=== PATIENT | female | born 1975 | race Caucasian/White ===

== ENCOUNTER 2024-08-19 02:23 | Emergency (ER) | payer OTHER, SELFPAY ==
[2024-08-19 02:23] VITALS: BP 146/88; PULSE 98; RESP 16; TEMP 36.5; O2SAT 99; BMI 28.5
--- NOTE | 2024-08-19 02:42 | CT_ITS ---
PROCEDURE: ABDOMEN/PELVIS W IV CONT ONLY REASON FOR EXAM: ABD PAIN TECHNIQUE: Abdomen and pelvis CT with intravenous contrast. IV CONTRAST: 100 cc of Isovue 370 COMPARISON: None. FINDINGS: There dependent changes at the lung bases. There is no pleural or pericardial effusion. There is no free air within the abdomen and pelvis. The liver, gallbladder, spleen, adrenals, pancreas are within normal limits. The bilateral kidneys are without evidence of hydronephrosis or obstructive uropathy. There are small hypodense structures within the bilateral kidneys, some are too small to characterize but statistically represent cysts urinary bladder is within normal limits. The uterus is heterogeneous in appearance. A large posterior uterine wall mass is present measuring up to 8.5 x 7.8 by 7.7 cm. This most likely represents fibroid versus adenomyoma. Moderate colonic stool is present. There is no evidence of bowel obstruction. The appendix is difficult to identified. No definite inflammatory processes however seen within the right lower quadrant. There is no bowel obstruction. No acute osseous abnormality seen. CT/Abdomen/Pelvis W IV Cont ONLY IMPRESSION: Heterogeneous appearance of the uterus. 8.5 cm mass seen within the posterior uterine wall is likely to represent a fibroid versus adenomyoma. No definite acute inflammatory process is seen within the abdomen or pelvis. N o evidence of bowel obstruction. Other findings as above. One or more dose reduction techniques were used (e.g., Automated exposure contr ol, adjustment of the mA and/or kV according to patient size, use of iterative reconstruction technique). Reading Location: [id number]
--- NOTE | 2024-08-19 02:45 | EDS_ITS ---
HPI History of Present Illness Chief Complaint: Abd Pain Informant: patient and family Narrative Narrative: Patient is a 49-year-old female with no reported significant past medical history. She states she went to bed normally and then awoke a few hours prior to arrival with sharp lower abdominal discomfort. She states has been no recent trauma or excessive physical activity. She denies any concern for and states that her menstrual cycle ended roughly 1 week ago. She states that there is no associated vomiting diarrhea dysuria or constipation. She does report mild nausea secondary to the pain. She states she typically can take 1 Tylenol and her symptoms resolved but that this evening there has been no improvement and secondary to this comes in for evaluation. PFSH PFS Medical History no medical history no medical history Home Medications ?Medication ?Instructions ?Recorded ?Last Taken ?Type NK 08/19/24 Unknown History Allergy/AdvReac Type Severity Reaction Status Date / Time Penicillins (PCN) Allergy RASH Verified 08/19/24 02:23 Surgical History no surgical history Social History Smoking Status: Never smoker [facility] ED Constitutional Constitutional ED: Denies chills or fever(s) ENT ENT ED: Denies sore throat Cardiovascular Cardiovascular: Denies chest pain Respiratory/Chest Respiratory/Chest: Denies cough or dyspnea Gastrointestinal Gastrointestinal: Reports abdominal pain and nausea; Denies constipation, diarrhea or vomiting Genitourinary Genitourinary ED: Denies dysuria or hematuria Musculoskeletal Musculoskeletal: Denies back pain Integumentary Denies rash Neurologic Neurologic: Denies headache(s) Hematologic/Lymphatic Hematologic/Lymphatic: Denies easy bleeding or easy bruising EXAM Physical Exam Const Vital Signs: 08/19/24 02:23 08/19/24 04:23 08/19/24 06:00 Temperature 97.7 F L Temperature Source Oral Pulse Rate 98 81 90 Respiratory Rate 16 16 16 Blood Pressure 146/88 H 125/76 H 105/52 L Blood Pressure Mean 107 92 69 Pulse Ox 99 98 99 Oxygen Delivery Method Room Air Room Air 08/19/24 07:21 Temperature Temperature Source Pulse Rate 78 Respiratory Rate 16 Blood Pressure 121/72 H Blood Pressure Mean 88 Pulse Ox 98 Oxygen Delivery Method Room Air Positive well nourished and well developed General Appearance ED: well developed; Negative for pallor HEENT Reports moist mucous membranes HEENT Narrative: No tongue or lip swelling no oral lesions no airway edema or compromise No secondary findings in the posterior pharynx to suggest infection Eyes PERRL and EOMs intact bilaterally General Eye ED: Negative for scleral icterus Neck supple Neck Narrative: No nuchal rigidity or meningeal signs Resp normal respiratory effort and clear to auscultation bilaterally Cardio regular rate and regular rhythm Rate: other Other Details: Heart is regular rate and rhythm without murmurs rubs or gallops Radial and carotid pulses are equal and symmetric GI non-distended and no masses GI Narrative: Abdomen is soft and nondistended with normal active bowel sounds. There is pain on palpation in the suprapubic and right lower quadrant without voluntary gua rding or rigidity No pulsatile mass or fluid wave Negative Valdez sign Auscultation: normoactive bowel sounds Palpation: soft Back/Spine no CVA tenderness Extremity normal to inspection Neuro oriented x3, CN's II-XII intact bilaterally and no sensory deficits noted Sensorium / Orientation: alert Motor Exam: strength 5/5 throughout Psych mental status grossly normal Skin no rashes or lesions noted and no wounds General Skin Exam: Negative for jaundice or pallor MDM MDM MDM Narrative Medical decision making narrative: Patient arrived to ER hypertensive otherwise with stable vitals. She reported pain in the lower mid abdomen without trauma or excessive activity. She denied any dysuria vaginal discharge or concern for . With pain in the suprapubic to right lower quadrant region there is concern for UTI versus acute appendicitis versus kidney stone versus ovarian cyst versus complication. Basic blood work was obtained and reveals no leukocytosis or left shift. No signs of acute kidney injury or lactic acidosis. Urine sample showed no sign of infection going against UTI or blood going against kidney stone and test is negative going against complication. CT scan showed a large uterine fibroid but otherwise no clinically significant finding. This does correlate with her location of pain. In order to ensure that there is no secondary ovarian pathology or signs of decreased blood flow causing her increased abdominal discomfort I did elect to perform a ultrasound of the uterus and ovaries while in the ER. The ultrasound showed no signs of obvious infection or lack of blood flow and this correlates with her spontaneous improvement of pain as well as stable vitals and laboratory values. Therefore this time there is no need for further evaluation in the ER the patient can follow-up with [facility] to discuss further treatment options and or need for hysterectomy to prevent any recurrence of her pain History & Record Review Discussion w/independent historian: Patient and Family Lab Data Attestation: I reviewed the patient's lab results. Labs: Laboratory Results - last 24 hr 08/19/24 08/19/24 02:52 04:10 WBC 5.8 RBC 4.35 Hgb 13.0 Hct 38.0 MCV 87.4 MCH 29.9 MCHC 34.2 RDW Std Deviation 38.9 RDW Coeff of Nilo 12.2 Plt Count 221 MPV 8.7 Immature Gran % (Auto) 0.200 Neut % (Auto) 64.8 Lymph % (Auto) 23.6 [place] % (Auto) 10.0 Eos % (Auto) 1.2 Baso % (Auto) 0.2 Absolute Neuts (auto) 3.8 Absolute Lymphs (auto) 1.37 Nucleated RBC % 0 Sodium 138 Potassium 3.6 Chloride 103 Carbon Dioxide 24.5 Anion Gap 10 BUN 18 Creatinine 0.84 Estim Creat Clear Calc 76.36 Est GFR (MDRD) Non-Af 87 BUN/Creatinine Ratio 21.3 H Glucose 101 H Lactic Acid < 1.0 Calcium 9.0 Total Bilirubin 0.19 Direct Bilirubin 0.12 AST 29 ALT 22 Alkaline Phosphatase 66 Total Protein 6.6 Albumin 4.0 Globulin 2.7 Lipase 40 Serum , Qual NEGATIVE Urine Color Yellow Urine Clarity Clear Urine pH 7.0 Ur Specific [place] 1.010 Urine Protein Negative Urine Glucose (UA) Normal Urine Ketones Negative Urine Occult Blood Negative Urine Nitrite Negative Urine Bilirubin Negative Urine Urobilinogen Normal Ur Leukocyte Esterase Negative Urine RBC 0 SEEN Urine WBC 0 SEEN Ur Squamous Epith Cells 0 SEEN Urine Bacteria 0 SEEN Urine Mucus 0 SEEN Radiography Diagnostic Testing: Clinical Impression(s) from Imaging Studies Abdomen/Pelvis CT 08/19/24 02:42 IMPRESSION: Heterogeneous appearance of the uterus. 8.5 cm mass seen within the posterior uterine wall is likely to represent a fibroid versus adenomyoma. No definite acute inflammatory process is seen within the abdomen or pelvis. No evidence of bowel obstruction. Other findings as above. One or more dose reduction techniques were used (e.g., Automated exposure control, adjustment of the mA and/or kV according to patient size, use of iterative reconstruction technique). Reading Location: [id number] Pelvis Ultrasound 08/19/24 05:17 IMPRESSION: Enlarged fibroid uterus. 8 cm x 7.6 cm x 8.2 cm posterior fundal fibroid. Reading Location: [place] [id number] Discharge Plan Triage Chief Complaint: Abd Pain ED Provider: Giovanni Johnson Dx/Rx/DC Orders Clinical Impression: Uterine fibroid, Pelvic pain Instructions: Abdominal Pain, ED Uterine Fibroids Prescriptions: No Action NK Primary Care Provider: Care Physician,No Primary Referrals: Tri Medina MD [Med Staff - Active Staff] - (Pelvic pain with uterine fibroid) NOT,DEFINED [Non-Staff] - Activity Restrictions/Additional Instructions: Please follow-up with [facility] to discuss further treatment options and/or need for surgery based on your uterine fibroid and pain. If you develop abdominal pain that does not respond to [id number] medication significant bleeding or a fever or you have any further concerns please return to the ER for repeat evaluation Print Language: Thai Disposition Disposition: Home, Self Care
[2024-08-19] MEDS: 0.9% Normal Saline (1000mL) 1,000 ML 999 ML IV (02:53)
[2024-08-19 03:06] LABS: Absolute Lymphocyte Count 1.37 X10^3/uL (0.83-4.51); Absolute Neutrophil Count 3.8 X10^3/uL (2.0-7.7); Basophil# 0.01 X10^3/uL; Basophil% 0.2 % (0-1); Eosinophil# 0.07 X10^3/uL; Eosinophils% 1.2 % (0-5); Lymphocyte # 1.37 X10^3/ul (0.83-4.51); Lymphocyte % 23.6 % (19-41); Mean Corp Hgb Conc 34.2 g/dL (32-36); Mean Corpuscular Hgb 29.9 pg (27.0-32.0); Mean Corpuscular Volume 87.4 fL (81-99); Mean Platelet Vol. 8.7 fl (6.2-12.0); Monocyte# 0.58 X10^3/uL; NRBC Flagged by Analyzer 0 % (0-5); Neutrophil # 3.76 X10^3/uL (2.7-7.7); Neutrophil % 64.8 % (47-70); Platelet Count 221 K/mm3 (150-450); RBC Distribution Width CV 12.2 % (11.6-14.6); RBC Distribution Width SD 38.9 fl (35.1-43.9); Red Blood Count 4.35 M/mm3 (4.2-5.4); White Blood Count 5.8 K/mm3 (4.4-11.0)
[2024-08-19 03:31] LABS: Internal QC Validated? YES +Cl - CLEAR BKGD; Pregnancy, Serum, hCG Quali. NEGATIVE Negative
[2024-08-19 03:32] LABS: AST(SGOT) 29 U/L (<=31); Alanine Aminotransfer ALT/SGPT 22 U/L (<=34); Alkaline Phosphatase 66 U/L (35-104); Anion Gap 10 (5-15); BUN 18 mg/dL (4-19); BUN/Creat Ratio 21.3 RATIO (10-20); Bilirubin, Direct 0.12 mg/dL (0.00-0.30); Carbon Dioxide 24.5 mmol/L (21.0-32.0); Chloride 103 mmol/L (98-108); Creatinine, Serum 0.84 mg/dL (0.70-1.20); EST Glomerular Filtration Rate 87 (>60); Estimated Creatinine Clearance 76.36 ml/min (50-250); Globulin 2.7 g/dL (2.2-4.2); Glucose 101 mg/dL (70-99); Lipase 40 U/L (13-75); Potassium 3.6 mmol/L (3.3-5.1); Protein, Total 6.6 g/dL (5.9-8.4); Sodium Level 138 mmol/L (133-145); Total Bilirubin 0.19 mg/dL (0.00-1.30)
[2024-08-19 03:36] LABS: Lactic Acid < 1.0 mmol/L (0.0-2.0)
[2024-08-19 04:23] VITALS: BP 125/76; PULSE 81; RESP 16; O2SAT 98
[2024-08-19 04:23] LABS: Bacteria 0 SEEN /hpf (None Seen); Mucous, Urine 0 SEEN /hpf (<or=2+); Squamous Epithelial Cells - UA 0 SEEN /hpf (5-10); White Blood Cells 0 SEEN /hpf (0-5)
[2024-08-19 04:25] LABS: Color, Urine Yellow (Yellow); Glucose, Dipstick Normal (Normal); Ketone-Dipstick Negative (Negative); Leukocyte Esterase-Dipstick Negative /ul (Negative); Nitrite-Dipstick Negative (Negative); Occult Blood-Urine Negative /ul (Negative); Protein-Dipstick Negative (Negative); Urine Bilirubin Dipstick Negative (Negative); Urine Clarity Clear (Clear); Urine Urobilinogen Normal (Normal)
[2024-08-19 04:51] LABS: Red Blood Cells-Urine 0 SEEN /hpf (0-5)
--- NOTE | 2024-08-19 05:17 | US_ITS ---
PROCEDURE: PELVIC (NON ) REASON FOR EXAM: PELVIC PAIN WITH UTERINE FIBROID TECHNIQUE: Transabdominal pelvic ultrasound COMPARISON: None. FINDINGS: LMP: August 15, 2024. Measurements: Uterus: 13 cm x 8.8 cm x 8.6 cm with a volume of 514 mL Endometrial Thickness: 8.1 mm. It is hyperechoic. Right Ovary: 3.2 cm x 2.2 cm x 1.7 cm with a volume of 6.33 mL. Left Ovary: 2.1 cm x 2.1 cm x 1 cm with a volume of 2.3 mL. Uterus: There is an 8 cm x 7.6 cm x 8.2 cm posterior uterine fibroid corresponding to the CT findings. Endometrium: Unremarkable. Right ovary: Normal size and echotexture. Left ovary: Normal size and echotexture. No large pelvic mass identified. US/Pelvic (Non ) IMPRESSION: Enlarged fibroid uterus. 8 cm x 7.6 cm x 8.2 cm posterior fundal fibroid. Reading Location: [place] [id number]
[2024-08-19 06:00] VITALS: BP 105/52; PULSE 90; RESP 16; O2SAT 99
[2024-08-19 07:21] VITALS: BP 121/72; PULSE 78; RESP 16; O2SAT 98
[2024-08-19 08:19] VITALS: BP 136/84; PULSE 88; RESP 16; TEMP 36.2; O2SAT 97
== END 2024-08-19 08:20 | disposition home or self-care (01) ==
PROVIDERS: Emergency Provider Emergency Medicine; Visit Provider Emergency Medicine
DX: D25.9 Leiomyoma of uterus, unspecified (principal); R11.0 Nausea; R10.31 Right lower quadrant pain; R10.2 Pelvic and perineal pain
CPT/HCPCS: 74177; 76856; 80048; 80076; 81001; 83605; 83690; 84703; 85025; 96360; 99283; Q9967; A4216